=== PATIENT | female | born 1975 | race Two or more races ===

== ENCOUNTER 2017-12-23 19:18 | Emergency (ER) | payer OTHER ==
[~2017-12-23] VITALS: Ht 165.1 cm; Wt 86.2 kg
[~2017-12-23 19:18] MED LIST: AZITHROMYCIN250 MG ORAL; PROMETHAZINE-C118 M1 ORAL
[2017-12-23 19:35] VITALS: BP 123/79
[2017-12-23] MEDS ORDERED: AMOXICILLIN500 MG ORAL (20:17)
[2017-12-23] MEDS ORDERED: PROMETHAZINE-C118 M1 ORAL (20:17)
[2017-12-23 20:27] VITALS: BP 123/79
--- NOTE | 2017-12-23 22:12 | Emergency Room Report ---
History of Present Illness General Chief Complaint: Dyspnea/Respdistress Source: Patient Present Illness HPI 42-year-old female presents ED for evaluation. Patient notes having a cough 1 month. Productive with yellowish phlegm. States she's tried many over-the- counter medications without relief. Afebrile in triage. Also complaining of soreness the chest from coughing. 4 out of 10, dull, nonradiating. Denies shortness of breath. Denies history of smoking or drug use. No other aggravating relieving factors. Denies any other associated symptoms Allergies: Coded Allergies: No Known Allergies (Unverified , 01/19/16) Patient History Past Medical History: HTN Past Surgical History: none Pertinent Family History: none Social History: Denies: smoking, alcohol use, drug use Last Menstrual Period: December 11 Now: No : 1 Para: 1 Immunizations: UTD Reviewed Nursing Documentation: PMH: Agreed; PSxH: Agreed Nursing Documentation-PMH Hx Hypertension: Yes Review of Systems All Other Systems: negative except mentioned in HPI Physical Exam Vital Signs Date Time Temp Pulse Resp B/P (MAP) Pulse Ox O2 Delivery O2 Flow Rate FiO2 12/23/17 19:29 98.2 87 18 123/79 98 Room Air 98.2 Sp02 EP Interpretation: reviewed, normal General Appearance: no apparent distress, alert, GCS 15, non-toxic Head: normocephalic, atraumatic Eyes: bilateral eye normal inspection, bilateral eye PERRL ENT: hearing grossly normal, normal pharynx, no angioedema, normal voice Neck: full range of motion, supple/symm/no masses Respiratory: chest non-tender, lungs clear, normal breath sounds, speaking full sentences Cardiovascular #1: regular rate, rhythm, no edema Cardiovascular #2: 2+ carotid (R), 2+ carotid (L), 2+ radial (R), 2+ radial (L) , 2+ dorsalis pedis (R), 2+ dorsalis pedis (L) Gastrointestinal: normal bowel sounds, non tender, soft, non-distended, no guarding, no rebound Rectal: deferred Genitourinary: normal inspection, no CVA tenderness Musculoskeletal: back normal, gait/station normal, normal range of motion, non- tender Neurologic: alert, oriented x3, responsive, motor strength/tone normal, sensory intact, speech normal Psychiatric: judgement/insight normal, memory normal, mood/affect normal, no suicidal/homicidal ideation Reflexes: 3+ bicep (R), 3+ bicep (L), 3+ tricep (R), 3+ tricep (L), 3+ knee (R) , 3+ knee (L) Skin: normal color, no rash, warm/dry, well hydrated Lymphatic: no adenopathy Medical Decision Making Diagnostic Impression: Primary Impression: Atypical pneumonia ER Course Hospital Course 42-year-old female presents ED complaining of cough x 1 month Differential diagnoses include: URI, pharyngitis, otitis media, asthma Clinical course Patient placed on stretcher. After initial history, physical exam reveals a female in no acute distress. Bilateral TM unremarkable. No pharyngeal erythema. No tonsillar exudates. No lymphadenopathy. lungs clear. abdomen soft. Presentation consistent with atypical pneumonia. Given presentation, i will prescribe amoxcillin Diagnosis - atypical pneumonia Stable and discharged home with Rx amoxicillin, promethazine/codeine. Instructed to followup with PMD. Return to ED if symptoms recur or worsen Last Vital Signs Date Time Temp Pulse Resp B/P (MAP) Pulse Ox O2 Delivery O2 Flow Rate FiO2 12/23/17 20:27 98.2 18 123/79 98 Room Air 98.2 12/23/17 19:35 87 Status: improved Disposition: HOME, SELF-CARE Condition: Stable Scripts Codeine/Promethazine Hcl* (PROMETHAZINE-CODEINE SYRUP*) 118 Ml Syrup 5 ML ORAL Q6H PRN for For Cough, #118 ML 0 Refills Prov: Walter Lee MD 12/23/17 Amoxicillin* (AMOXIL*) 500 Mg Capsule 500 MG ORAL THREE TIMES A DAY, #21 CAP Prov: Walter Lee MD 12/23/17 Patient Instructions: Community-Acquired Pneumonia, Adult, [id number] Walter Lee MD Dec 23, 2017 22:12
== END 2017-12-23 20:27 | disposition home or self-care (01) ==
LOC: EMR 19:37
DX: J18.9 Pneumonia, unspecified organism (principal); I10 Essential (primary) hypertension
CPT/HCPCS: 99284

== ENCOUNTER 2018-05-18 08:09 | Inpatient (IN) | payer OTHER ==
[~2018-05-18] VITALS: Ht 165.1 cm; Wt 115.7 kg
[2018-05-18] VITALS (11 sets, daily range): BP systolic 112–127; BP diastolic 69–78
[~2018-05-18 08:09] MED LIST changes: +AMOXICILLIN500 MG ORAL; +FERROUS PO; +cefOXitin Sod 2 GM in D5W 110 ML IVPB ONE
[2018-05-18] MEDS ORDERED: Ropivacaine 5mg/ml Vial 30ml INJ ONE (08:34)
[2018-05-18] MEDS ORDERED: NICOTINE GUM2 MG BC (08:46)
[2018-05-18] MEDS ORDERED: Lidocaine 1% MPF 10mg/ml 5ml ONE ×2 (09:36→09:37)
[2018-05-18] MEDS ORDERED: fentaNYL 100 mcg/2 mL IV ONE ×2 (09:36→10:29)
[2018-05-18] MEDS ORDERED: Propofol 200mg/20ml IV ONE ×2 (09:36→09:37)
[2018-05-18] MEDS ORDERED: Midazolam 2mg/2ml Inj ONE (09:36)
[2018-05-18] MEDS ORDERED: ePHEDrine 50mg/ml Inj ONE (09:37)
[2018-05-18] MEDS ORDERED: Dexamethasone 4mg/ml vial ONE (09:37)
[2018-05-18] MEDS ORDERED: Succinylcholine 20mg/ml 10ml vial ONE (09:51)
[2018-05-18] MEDS ORDERED: Zemuron 50mg/5ml Inj IV ONE (09:51)
[2018-05-18] MEDS ORDERED: NS Irrig 1000ml ONE (10:00)
[2018-05-18] MEDS ORDERED: Sterile Water Irrig 1000ml IRRIG ONE (10:00)
[2018-05-18] MEDS ORDERED: LR 1000ml ONE (10:00)
--- NOTE | 2018-05-18 10:08 | Anethesia Preoperative Eval ---
Anesthesia Pre-op PMH/ROS General Date of Evaluation: May 18, 2018 Time of Evaluation: 09:51 Anesthesiologist: Emily Landa CRNA ASA Score: ASA 2 Mallampati Score Class I : Soft palate, uvula, fauces, pillars visible Class II: Soft palate, uvula, fauces visible Class III: Soft palate, base of uvula visible Class IV: Only hard plate visible Mallampati Classification: Class II Surgeon: Pablito Diagnosis: ovarian cyst; dysmenorrhea Surgical Procedure: total abominal hyterectomy; (B) salpingectomy; (B) ovarian cystectomy Anesthesia History: none Social History: smoking, alcohol use Family History: no anesthesia problems Allergies: Coded Allergies: No Known Allergies (Unverified , 05/18/18) Medications: see eMAR Past Medical History Cardiovascular: Denies: HTN, CAD, [place], valve dz, arrhythmia, other Pulmonary: Reports: other - ex smoker 10 pack years quit 2005; Denies: asthma, COPD, DENG Gastrointestinal/Genitourinary: Reports: GERD, other - ovarian cysts, dysmenorhea, uterine fibroids; Denies: CRI, ESRD Neurologic/Psychiatric: Denies: dementia, CVA, depression/anxiety, TIA, other Endocrine: Denies: DM, hypothyroidism, steroids, other HEENT: Denies: cataract (L), cataract (R), glaucoma, LOWER ELWHA (L), LOWER ELWHA (R), other Hematology/Immune: Reports: anemia; Denies: DVT, bleeding disorder, other Musculoskeletal/Integumentary: Reports: other - chonic lower back pain; Denies: OA, RA, DJD, DDD, edema Other: obesity PMH Narrative: as above PSxH Narrative: Laparoscopic appendectomy Anesthesia Pre-op Phys. Exam Physician Exam Last Vital Signs Date Time Temp Pulse Resp B/P (MAP) Pulse Ox O2 Delivery O2 Flow Rate FiO2 05/18/18 08:51 98.0 75 18 120/74 (89) 98 98.0 05/18/18 08:35 Room Air Constitutional: NAD Neurologic: CN 2-12 intact Cardiovascular: RRR Respiratory: CTA Gastrointestinal: S/NT/ND, other - obese Airway Exam Mallampati Score: Class III MO: full Neck: FROM TMD: > 3 B ROM: full Teeth: intact Dentures: no upper, no lower Anesthesia Pre-op A/P Labs see chart Urine Test Test 05/18/18 08:20 Urine HCG, Qualitative Negative (NEGATIVE) Studies Pre-op Studies: EKG - 05/11/18: NSR HR 90 Risk Assessment & Plan Assessment: anemic, obese; GERD (well controlled), chonic lower back pain here for gynecological surgery Plan: GETA Status Change Before Surgery: No Pre-Antibiotics Drug: Cefazolin 2 gm Given Within 1 Hr of Incision: Yes Time Given: 10:21 Emily Landa CRNA May 18, 2018 10:08
--- NOTE | 2018-05-18 10:11 | Pre-Procedure Note/Attestation ---
Pre-Procedure Note/Attestation Complete Prior to Procedure Planned Procedure: bilateral Procedure Narrative: Total abdominal hysterectomy, bilateral salpingectomy, bilateral ovarian cystectomy Indications for Procedure Pre-Operative Diagnosis: AUB-L, pelvic pain Attestation I attest that I discussed the nature of the procedure; its benefits; risks and complications; and alternatives (and the risks and benefits of such alternatives ), prior to the procedure, with the patient (or the patient's legal patient intake representative). I attest that, if there was a reasonable possibility of needing a blood transfusion, the patient (or the patient's legal patient intake representative) was given the [facility] standardized written summary, pursuant to the Gianfranco Radha Blood Safety Act ([place] Health and Safety Code # 1645, as amended). I attest that I re-evaluated the patient just prior to the surgery and that there has been no change in the patient's H&P, except as documented below: Kareen Cleaning M.D. May 18, 2018 10:11
[2018-05-18] MEDS ORDERED: Acetaminophen (Non formulary) 100 ML IV ONE (10:15)
[2018-05-18] MEDS ORDERED: Ketorolac 30mg Inj ONE (11:05)
[2018-05-18] MEDS ORDERED: Metoclopramide 10mg/2ml Inj IVP PRN (11:30)
[2018-05-18] MEDS ORDERED: Hydromorphone 0.5mg/0.5ml inj IVP PRN (11:30)
[2018-05-18] MEDS ORDERED: Neostigmine 1mg/ml 10ml Inj ONE (11:58)
[2018-05-18] MEDS ORDERED: Glycopyrrolate 0.2mg/ml 1ml Vial ONE (11:58)
--- NOTE | 2018-05-18 13:26 | Operative Note - PDOC ---
Operative Note Operative Note Chief Complaint: Heavy vaginal bleeding, pelvic pain, fibroids, ovarian cysts Pre-op Diagnosis: AUB-L, pelvic pain, bilateral ovarian cysts Procedure: Total abdominal hysterectomy, bilateral salpingectomy, bilateral drainage of ovarian cysts, lysis of adhesions Post-op Diagnosis: Fibroid uterus, bilateral hematosalpinx, bilateral ovarian cyst (likely endometriomas), intra-abdominal adhesions Operative Findings: consistent w/pre-op dx studies, other - Multiple intra- abdominal adhesions, bilateral hematosalpinxm bilateral ovarian cysts which drained chocolate-colored fluid Surgeon: Kareen Kenney MD Technical Programs Manager: Jarod Chun MD Anesthesiologist: Randy Landa cRNA Anesthesia: general Specimen: yes - Uterus, Left and Right fallopian tubes Complications: none Condition: stable Fluids: 3000cc Crystalloid, 250cc Albumin Estimated Blood Loss: volume - 500cc Drains: other - Rust (300cc urine output) Packing: None Implant(s) used?: No Indications for Procedure AUB-L, pelvic pain, bilateral ovarian cysts Description of Procedure The risks, benefits, and alternatives to the procedure were discussed with the patient at length, and informed consent was obtained. The patient was taken to the operating room and placed in the dorsal supine position where general anesthesia was administered without difficulty. SCD stockings were in place and a rust catheter was placed. The patient was prepped and draped in the usual sterile fashion. A time out was performed to verify patient and procedure. A Pfannenstiel incision was made with the scalpel and was carried down through the subcutaneous layer to the fascia with the bovie and blunt dissection. The fascia was identified, incised at the midline, and extended laterally with the bovie. The fascia was from the underlying rectus tissue superiorly and inferiorly using blunt dissection and with the bovie. The peritoneum was identified, entered sharply and stretched, with care being taken to identify and avoid the bladder. The uterus was palpated and multiple intra-abdominal adhesions were noted between the uterus and the omentum. Omentum was attached to an anterior fundal fibroid, which was dissected away with great care. There was omental tissue adherent to the tubes and ovaries bilaterally as well as the posterior lower segment of the uterus. The adhesions were taken down using blunt dissection and electrosurgery. An Armand retractor was placed to aid with visualization. The uterus was partially exteriorized, allowing us to clamp and suture ligate the tubal cornua and utero-ovarian ligaments bilaterally. The decision was then made to partially amputate the uterus to allow for clear visualization of critical uterine structures and proceed safely with the hysterectomy. Dilute Vasopressin was injected into the uterine corpus and the fundal portion of the uterus was amputated without incident. All visible fibroids were removed and the hysterectomy was continued. The round ligaments were identified bilaterally, clamped, cut, and suture ligated. The anterior leaf of the broad ligament was dissected away from the lower uterine segment and a bladder flap was created. The posterior leaf of the broad ligament was dissected to allow visualization of the uterine arteries bilaterally. The uterine vessels were sequentially clamped, cut, and suture ligated to the level of the external os. The uterine corpus was then cross clamped at the level of the cervicovaginal junction, cut, and the uterus was handed off the surgical field. The vaginal cuff was closed with 0-Vicryl, first with 2 figure of eight sutures at the angles, and then interlocked suture for reapproximation. Attention was then turned to the tubes and ovaries. The tubes were noted to be distended and full of chocolate-colored fluid. Omental adhesions were released from the tubes and ovaries to allow us to safely proceed with salpingectomy. The tubes were dissected away from the ovaries at the level of the mesosalpinx. Of note, all tissue was thickened and normal anatomy was masked. The tubes were handed off the surgical field and excellent hemostasis was noted. At time of salpingectomy there was spillage of chocolate fluid from both tubes. The ovaries were then inspected and were also noted to be filled with chocolate- colored fluid. The ovaries were unable to be dissected safely for removal of the cyst capsules bilaterally, thus we proceeded with drainage only. Excellent hemostasis was noted. The abdomen was irrigated and some bleeding was noted from the left angle of the vaginal cuff. Figure of eight suture of 0 Vicryl and electrosurgery resulted in hemostasis. The pedicles were all inspected and irrigation of the abdomen was performed. All pedicles were noted to be hemostatic. The Armand retractor was removed without incident. A manual and visual sweep was performed. The anterior peritoneum was closed with running suture of 2-0 Vicryl and the rectus muscles were reapproximated with running suture of 2-0 Vicryl. Excellent hemostasis was noted. The fascia was closed with running sutures of 0 Vicryl. The subcutaneous layer was irrigated, all bleeding vessels were cauterized, and then closed with running 3-0 plain gut suture. The skin was closed with vitaly and a pressure dressing was applied. All instrument, sponge, and needle counts were correct x 3. The patient was extubated and taken to the recovery room in good condition. Kareen Kenney M.D. May 18, 2018 13:26
--- NOTE | 2018-05-18 13:26 | Brief Operative Note ---
Immediate Post Operative Note Operative Note Chief Complaint: Heavy vaginal bleeding, pelvic pain, fibroids, ovarian cysts Pre-op Diagnosis: AUB-L, pelvic pain, bilateral ovarian cysts Procedure: Total abdominal hysterectomy, bilateral salpingectomy, bilateral drainage of ovarian cysts, lysis of adhesions Post-op Diagnosis: Fibroid uterus, bilateral hematosalpinx, bilateral ovarian cyst (likely endometriomas), intra-abdominal adhesions Findings: consistent w/pre-op dx studies, other - Multiple intra-abdominal adhesions, bilateral hematosalpinx Surgeon: Kareen Kenney MD Public Policy Associate: Jarod Chun MD Anesthesiologist: Randy Landa cRNA Anesthesia: general Specimen: yes - Uterus, Left and Right fallopian tubes Complications: none Condition: stable Fluids: 3000cc Crystalloid, 250cc Albumin Estimated Blood Loss: volume - 500cc Drains: other - Mcnulty (300cc urine output) Packing: None Implant(s) used?: No Kareen Kenney M.D. May 18, 2018 13:26
[2018-05-18] MEDS: Ketorolac 30mg Inj IM SCH ×3 (13:30→19:57)
[2018-05-18] MEDS ORDERED: Norco 5mg/325mg tab ORAL PRN (13:30)
--- NOTE | 2018-05-18 13:51 | Immediate Post-Op Evaluation ---
Immediate Post-Op Evalulation Immediate Post-Op Evalulation Procedure: total abdominal hysterectomy, (B) salpingoectomy; (B) cystectomy Date of Evaluation: May 18, 2018 Time of Evaluation: 13:35 IV Fluids: [place] [address] ml; albumin 5% 250ml Estimated Blood Loss: 500 ml Urinary Output: 300 ml Blood Pressure Systolic: 127 Blood Pressure Diastolic: 73 Pulse Rate: 85 Respiratory Rate: 28 O2 Sat by Pulse Oximetry: 98 Temperature (Fahrenheit): 98.0 Pain Score (1-10): 0 Nausea: No Vomiting: No Complications stable Patient Status: reacts, patent, extubated Hydration Status: adequate Drug: cefazolin 2 gm IV Given Within 1 Hr of Incision: Yes Time Given: 10:21 Emily Landa CRNA May 18, 2018 13:51
[2018-05-18] MEDS ORDERED: DiphenhydrAMINE 50mg/ml Inj IVP PRN (14:30)
[2018-05-18] MEDS ORDERED: DiphenhydrAMINE 50mg/ml Inj IVP SCH (15:00)
[2018-05-18] MEDS ORDERED: DiphenhydrAMINE 50mg/ml Inj ONE (15:02)
[2018-05-18] MEDS: Docusate 100mg cap ORAL SCH (17:36)
[2018-05-18] MEDS: D5NS 1,000 ML IV SCH (17:36)
[2018-05-18] MEDS: HYDROmorphone 1mg/ml Carpuject IVP PRN (17:37)
[2018-05-19] VITALS: BP 122/68
[2018-05-19] MEDS: D5NS 1,000 ML IV SCH ×2 (01:02→01:06)
[2018-05-19] MEDS: Ketorolac 30mg Inj IM SCH ×4 (01:07→20:05)
[2018-05-19 04:00] VITALS: BP 106/63
[2018-05-19] MEDS: HYDROmorphone 1mg/ml Carpuject IVP PRN (04:28)
[2018-05-19 08:02] LABS: BASOPHILS % (AUTO) 0.5 % (0.0-2.0); EOSINOPHILS % (AUTO) 0.1 % (0.0-3.0); HEMATOCRIT 30.5 % (37.0-47.0); HEMOGLOBIN 9.7 G/DL (12.0-16.0); LYMPHOCYTES % (AUTO) 17.3 % (20.0-45.0); MEAN CORPUSCULAR VOLUME 83 FL (80-99); MONOCYTES % (AUTO) 7.9 % (1.0-10.0); NEUTROPHILS % (AUTO) 74.2 % (45.0-75.0); PLATELET COUNT 347 K/UL (150-450); RED BLOOD COUNT 3.67 M/UL (4.20-5.40); RED CELL DISTRIBUTION WIDTH 14.1 % (11.6-14.8); WHITE BLOOD COUNT 14.3 K/UL (4.8-10.8)
[2018-05-19 08:24] LABS: BLOOD UREA NITROGEN 7 mg/dL (7-18); CALCIUM 8.6 MG/DL (8.5-10.1); CHLORIDE 106 MMOL/L (98-107); CREATININE 0.7 MG/DL (0.55-1.30); POTASSIUM 3.7 MMOL/L (3.5-5.1); SODIUM 141 MMOL/L (136-145)
[2018-05-19] MEDS: Docusate 100mg cap ORAL SCH ×2 (09:00→18:08)
--- NOTE | 2018-05-19 10:27 | 48 Hour Post Anesthesia Eval ---
Post Anesthesia Evaluation Procedure: total abdominal hysterectomy, (B) salpingoectomy; (B) cystectomy Date of Evaluation: May 19, 2018 Time of Evaluation: 10:26 Follow-up Care/Observations: none Post-Anesthesia Complications: none Emily Landa CRNA May 19, 2018 10:27
--- NOTE | 2018-05-19 10:35 | General Progress Note ---
Progress Note Progress Note GYNECOLOGY PROGRESS NOTE Patient POD#1 s/p YESSI, bilateral salpingectomy, bilateral ovarian cyst drainage Doing well. Minimal ambulation, recommend TID ambulation today at minimum. She is voiding and passing flatus. She is tolerating PO without nausea/vomiting. Pain well controlled. VS reviewed, WNL Exam: Bandage removed, vitaly c/d/i Abdomen soft, appropriately TTP No calf TTP Plan for d/c home tomorrow or Wednesday, depending on meeting post-op milestones Kareen Kenney M.D. May 19, 2018 10:35
[2018-05-19 10:56] LABS: ANION GAP 7 mmol/L (5-15); CARBON DIOXIDE 27 MMOL/L (21-32)
--- NOTE | 2018-05-19 12:50 | 48 Hour Post Anesthesia Eval ---
Post Anesthesia Evaluation Procedure: total abdominal hysterectomy, (B) salpingoectomy; (B) cystectomy Date of Evaluation: May 19, 2018 Time of Evaluation: 12:46 Blood Pressure Systolic: 116 0: 74 Pulse Rate: 68 Respiratory Rate: 20 Temperature (Fahrenheit): 97.6 O2 Sat by Pulse Oximetry: 98 Airway: patent Nausea: No Vomiting: No Pain Intensity: 3 Hydration Status: adequate Cardiopulmonary Status: stable Mental Status/LOC: patient returned to baseline Follow-up Care/Observations: n/a Post-Anesthesia Complications: none Follow-up care needed: N/A Mairo Hernández MD May 19, 2018 12:50
[2018-05-19 20:00] VITALS: BP 127/75
[2018-05-19 20:02] VITALS: BP 127/75
[2018-05-20] VITALS: BP 106/68
[2018-05-20 04:00] VITALS: BP 106/60
[2018-05-20] MEDS: HYDROcodone/Acetamin 10/325 tab ORAL PRN ×3 (04:43→17:24)
[2018-05-20 08:06] VITALS: BP 111/80
[2018-05-20] MEDS: Docusate 100mg cap ORAL SCH ×2 (08:21→17:24)
[2018-05-20 12:00] VITALS: BP 114/72
--- NOTE | 2018-05-20 12:20 | General Progress Note ---
Progress Note Progress Note GYNECOLOGY PROGRESS NOTE Patient POD#2 s/p YESSI, bilateral salpingectomy, bilateral ovarian cyst drainage Doing well, meeting all milestones. Ambulating, voiding, passing flatus, pain well controlled. Some nausea with [place], relieved with meal prior to medication VS reviewed, WNL Exam Incision c/d/i Abdomen soft, appropriately TTP No calf TTP Labs reviewed, Hgb 9.7, appropriate drop. Patient asymptomatic. Will continue iron at home. Discharge home today. Will Rx Kevin, Sohail Adames Carla M.D. May 20, 2018 12:20
--- NOTE | 2018-05-20 12:31 | Discharge Summary ---
Discharge Summary Hospital Course Date of Admission May 18, 2018 at 08:09 Date of Discharge 05/20/18 Admitting Diagnosis AUB-L, fibroid uterus, bilateral ovarian cysts, pelvic pain Reason for Hospitalization: Status post total abdominal hysterectomy ( laparotomy) WYATT Lee is a 43 year old female who was admitted on May 18, 2018 at 08 :09 for Abnormal uterine bleeding, bilateral ovarian cysts, and pelvic pain for planned hysterectomy Consultations Anesthesia Procedures Total abdominal hysterectomy, bilateral salpingectomy, bilateral ovarian cyst drainage, lysis of adhesions Hospital Course Uncomplicated, met all post-op milestones by POD2 Discharge Condition Upon Discharge: stable Discharge Disposition Patient was discharged to home Discharge Diagnoses: (1) S/P hysterectomy Kareen Kenney M.D. May 20, 2018 12:31
[2018-05-20] MEDS ORDERED: NORCO 10-325 T1 EACH ORAL (12:33)
[2018-05-20] MEDS ORDERED: IBUPROFEN600 MG ORAL (12:34)
[2018-05-20] MEDS ORDERED: COLACE100 MG ORAL (12:34)
[2018-05-20 16:00] VITALS: BP 116/75
== END 2018-05-20 18:30 | disposition home or self-care (01) | DRG 743 ==
LOC: SDSOVERFLO 08:09 → 3E 15:30
PROC: 0U920ZZ Drainage of Bilateral Ovaries, Open Approach (ICD-10-PCS; principal; 2018-05-18 10:00)
PROC: 0UT90ZZ Resection of Uterus, Open Approach (ICD-10-PCS; principal; 2018-05-18 10:00)
PROC: 0UT70ZZ Resection of Bilateral Fallopian Tubes, Open Approach (ICD-10-PCS; principal; 2018-05-18 10:00)
DX: D25.9 Leiomyoma of uterus, unspecified (principal); N93.8 Other specified abnormal uterine and vaginal bleeding; N83.209 Unspecified ovarian cyst, unspecified side; N83.6 Hematosalpinx
CPT/HCPCS: 36415; 80048; 81025; 85025; 86850; 86900; 86901; 94003; 94150; J2250; J2405; J2710; J2765